=== PATIENT | male | born 1970 | race African-American/Black ===

== ENCOUNTER 2020-09-29 20:48 | Emergency (ER) | payer BC | END 2020-09-29 20:56 | disposition left against medical advice (07) | LOC: ERS 20:48 | DX: Z53.21 Procedure and treatment not carried out due to patient leaving prior to being seen by health care provider (principal) ==

== ENCOUNTER 2022-09-17 08:17 | Emergency (ER) | payer OTHER ==
[2022-09-17] MEDS ORDERED: Bacitracin 1 PK ONE (08:50)
== END 2022-09-17 09:30 | disposition home or self-care (01) ==
LOC: ERS 08:17
DX: S51.811A Laceration without foreign body of right forearm, initial encounter (principal); F17.210 Nicotine dependence, cigarettes, uncomplicated; W25.XXXA Contact with sharp glass, initial encounter
CPT/HCPCS: 99282

== ENCOUNTER 2023-01-17 16:18 | Outpatient (CLI) | payer OTHER | END 2023-01-17 16:19 | disposition home or self-care (01) | LOC: BICRAD 16:18 | PROVIDERS: ATTEND Internal Medicine Gastroenterology | DX: R31.9 Hematuria, unspecified (principal); R06.6 Hiccough; K92.0 Hematemesis; Z79.01 Long term (current) use of anticoagulants | CPT/HCPCS: 71046 ==